=== PATIENT | male | born 1975 | race Caucasian/White ===

== ENCOUNTER 2017-08-12 17:02 | Emergency (ER) | payer BC ==
[2017-08-12 17:16] VITALS: BP 151/103
[2017-08-12] MEDS ORDERED: Albuterol 2.5 MG/3 ML NEB.SOL* (0.083%) INH ONE ×3 (17:28→18:52)
[2017-08-12] MEDS ORDERED: Ipratropium 0.5MG/2.5ML NEB* 0.5 MG/2.5 ML NEB.SOLN INH ONE ×2 (17:28→18:52)
--- NOTE | 2017-08-12 17:44 | UC ---
Respiratory Complaint HPI - HPI Summary HPI Summary: 42 MALE WITH COUGH AND WHEEZING X 2 DAYS SOB NO F/C RECENTLY RXED FOR BRONCHITIS GOT BETTER THEN RELAPSED NO CP NO N/V/D - History of Current Complaint Chief Complaint: UCRespiratory Stated Complaint: WHEEZING Time Seen by Provider: 08/12/17 17:17 Hx Obtained From: Patient Onset/Duration: Gradual Onset, Lasting Days Timing: Constant Severity Initially: Moderate Severity Currently: Severe Pain Intensity: 2 Pain Scale Used: 0-10 Numeric Character: Cough: Nonproductive Aggravating Factors: Exertion, Deep Breaths, Recumbent Position Alleviating Factors: Bronchodilator - MAYBE A LITTLE Associated Signs And Symptoms: Positive: Wheezing Related History: Similar Episode/Dx as: - BRONCHITIS - Allergies/Home Medications Allergies/Adverse Reactions: Allergies Allergy/AdvReac Type Severity Reaction Status Date / Time No Known Allergies Allergy Verified 08/12/17 17:14 PMH/Surg Hx/FS Hx/Imm Hx Cardiovascular History: Hypertension Respiratory History: Bronchitis - Surgical History Surgical History: None - Family History Known Family History: Positive: Cardiac Disease, Hypertension, Diabetes - grandmother - Social History Alcohol Use: Rare Substance Use Type: None Smoking Status (MU): Never Smoked Tobacco Review of Systems Constitutional: Negative Skin: Negative Eyes: Negative ENT: Negative Respiratory: Shortness Of Breath, Cough Cardiovascular: Negative Gastrointestinal: Negative Genitourinary: Negative Motor: Negative Neurovascular: Negative Musculoskeletal: Negative Neurological: Negative Psychological: Negative Is Patient Immunocompromised?: No All Other Systems Reviewed And Are Negative: Yes Physical Exam Triage Information Reviewed: Yes Appearance: Well-Appearing, No Pain Distress, Well-Nourished Vital Signs: Initial Vital Signs Temp 98.9 F 08/12/17 17:11 Pulse 103 08/12/17 17:11 Resp 18 08/12/17 17:11 BP 151/103 08/12/17 17:11 Pulse Ox 98 08/12/17 17:11 Eyes: Positive: Conjunctiva Clear ENT: Positive: Hearing grossly normal, TMs normal, Uvula midline. Negative: Nasal congestion, Nasal drainage, Tonsillar swelling, Tonsillar exudate, Trismus , Hoarse voice, Sinus tenderness Neck: Positive: Supple, Nontender, No Lymphadenopathy Respiratory: Positive: Accessory muscle use, Wheezing Cardiovascular: Positive: RRR, No Murmur Musculoskeletal: Positive: ROM Intact, No Edema Neurological: Positive: Alert Psychological Exam: Normal Skin Exam: Normal UC Diagnostic Evaluation - Laboratory O2 Sat by Pulse Oximetry: 98 - NORMAL/NOT HYPOXIC Re-Evaluation - Re-Evaluation First Eval Re-Evaluation Time: 18:04 Change: Improved - DECREASED ACC MUS USE/SLIGHT SUBJUCTIVE IMPROVEMENT Second Eval Re-Evaluation Time: 18:53 Change: Improved - still with poor peak flow (150), moving air better, still wheezing Third Eval Re-Evaluation Time: 19:45 Change: Improved Comment: still wheezing/peak flow 200/ no acc muscle use/feels markedly better Respiratory Course/Dx - Differential Dx/Diagnosis Provider Diagnoses: acute bronchitis with bronchospasm Discharge - Discharge Plan Condition: Good Disposition: HOME Prescriptions: Azithromycin TAB* [Zithromax TAB*] 250 mg PO DAILY #4 tab Prednisone [Deltasone] 40 mg PO DAILY #10 tab Patient Education Materials: Bronchospasm (ED) Referrals: Douglas Boothe DO [Primary Care Provider] - Additional Instructions: to ER for new or worsening symptoms See your MD first available appt you had a significant episode of wheezing you may need formal pulmonary function tests
[2017-08-12] MEDS ORDERED: predniSONE TAB* 20 MG PO ONE ×2 (18:03→19:42)
[2017-08-12] MEDS ORDERED: Azithromycin TAB* 250 MG PO ONE (19:41)
== END 2017-08-12 20:06 | disposition home or self-care (01) ==
LOC: UCEAST 17:02
DX: J20.9 Acute bronchitis, unspecified (principal); I10 Essential (primary) hypertension
CPT/HCPCS: 99213; A9270-GY; G0463; J7512; J7644